=== PATIENT | female | born 1970 | race Caucasian/White ===

== ENCOUNTER 2024-02-09 10:55 | Emergency (ER) | payer BC ==
[2024-02-09] MEDS ORDERED: predniSONE 20 MG TAB ONE (11:07)
[2024-02-09] MEDS ORDERED: Albuterol 2.5 MG (3 mL) NEB ONE (11:18)
== END 2024-02-09 11:55 | disposition home or self-care (01) ==
LOC: NAV ERS 10:55
DX: J45.901 Unspecified asthma with (acute) exacerbation (principal); J06.9 Acute upper respiratory infection, unspecified; Z79.899 Other long term (current) drug therapy
CPT/HCPCS: 94640; J7512; J7611